=== PATIENT | female | born 1945 | race Caucasian/White ===

== ENCOUNTER 2017-02-02 13:49 | Inpatient (IN) | payer MEDICARE, BC ==
--- NOTE | 2017-02-02 14:05 | ED.PDOC ---
History of Present Illness - General Chief Complaint: Abdominal Pain Stated Complaint: abdominal pain, N/V/hematochezia Time Seen by Provider: 02/02/17 13:59 Information Source: patient Exam Limitations: no limitations - History of Present Illness Initial Comments: Patient presents with abdominal pain, N/V, bloody diarrhea for two days. It started yesterday morning with N/V. No bilious emesis. Diarrhea started yesterday afternoon and it was mixed with blood. Today she has had a bowel movement that she says was pure blood. Abdominal pain is generalized, worse with eating and bowel movements, better with rest. No previous episodes. Sharp in nature. Has hx of cholecystectomy and total hysterectomy/ oophorectomy. Is IDDM. Says she has a history of hemorrhoids but she does not believe that they have been bleeding recently. Denies cardiac history. Past Medical History (General) - Patient Medical History Hx Seizures: No Hx Stroke: No Hx Dementia: No Hx Asthma: No Hx of COPD: No Hx Cardiac Disorders: No Hx Congestive Heart Failure: No Hx Pacemaker: No Hx Hypertension: Yes Hx Thyroid Disease: No Hx Diabetes: Yes Hx Gastroesophageal Reflux: Yes Hx Renal Disease: No Hx Cancer: No Hx of HIV: No Hx Hepatitis C: No Hx MRSA: No - Social History Hx Tobacco Use: No Hx Alcohol Use: No Hx Substance Use: No Hx Substance Use Treatment: No Hx Depression: No Family Medical History - Family History Mother Family History: No Known Hx Family;Other: Sister and Daughter both have Renal and Ureteral lithiasis. Physical Exam - Physical Exam General Appearance: Alert Eyes, Ears, Nose, Throat Exam: normal ENT inspection Neck: non-tender, full range of motion, supple Respiratory: chest non-tender, lungs clear, normal breath sounds Cardiovascular/Chest: normal peripheral pulses, regular rate, rhythm Peripheral Pulses: 2+ Gastrointestinal/Abdominal: normal bowel sounds, non tender, soft Back Exam: no CVA tenderness Extremity: non-tender, normal inspection, no pedal edema Neurologic: no motor/sensory deficits Skin Exam: normal color Lymphatic: no adenopathy Special Observations: Other - pain does not increase with coughing Progress - Progress Progress: 02/02/17 15:59 CT abdomen/pelvis showed thickening of the descending colon that could be infectious vs. inflammatory. wbc 11.7 Patient started on Levaquin 500 mg IV x one and metronidazole 500 mg IV x one. Admitted to inpatient. Laboratory Tests 02/02/17 02/02/17 14:04 14:53 WBC 11.7 H RBC 4.43 Hgb 12.2 Hct 37.7 MCV 85.1 MCH 27.6 MCHC 32.4 L RDW 14.0 Plt Count 302 MPV 8.4 Absolute Neuts (auto) 7.80 H Absolute Lymphs (auto) 3.00 Absolute Monos (auto) 0.80 Absolute Eos (auto) 0.00 Absolute Basos (auto) 0.10 Neutrophils % 66.0 Lymphocytes % 25.9 Monocytes % 7.1 Eosinophils % 0.2 L Basophils % 0.8 PT 13.2 H INR 1.170 PTT (SP) 27.7 Sodium 138 Potassium 3.4 L Chloride 101 Carbon Dioxide 29 Anion Gap 11.4 L BUN 23 H Creatinine 0.94 BUN/Creatinine Ratio 24.5 H Random Glucose 123 H Serum Osmolality 280.7 Lactic Acid 0.9 Calcium 9.2 Total Bilirubin 0.9 AST 24 ALT 21 Alkaline Phosphatase 60 Creatine Kinase 148 H CK-MB (CK-2) 3.2 CK-MB (CK-2) % Ramp Lead Troponin I < 0.02 B-Natriuretic Peptide 56.7 Serum Total Protein 7.5 Albumin 4.4 Globulin 3.1 Albumin/Globulin Ratio 1.4 Urine Color Yellow Urine Appearance Clear Urine pH 5.5 Ur Specific [place] 1.025 Urine Protein Negative Urine Glucose (UA) Negative Urine Ketones Negative Urine Blood Small H Urine Nitrite Negative Urine Bilirubin Negative Urine Urobilinogen 0.2 Ur Leukocyte Esterase Small H Urine RBC 5-10 H Urine WBC 5-10 H Ur Epithelial Cells 3-5 Urine Bacteria 2+ H Departure - Departure Clinical Impression: Acute colitis Disposition: Admit Patient Condition: Good Departure Forms: ED Discharge - Pt. Copy, Patient Portal Self Enrollment Instructions: DI for Abdominal Pain-Adult Diet: other - as per hospitalist Activity: increase activity as tolerated Home Medications: Ambulatory Orders Albuterol Inhaler [Ventolin Hfa Inhaler] 0 gm INH DAILY 09/12/14 Allopurinol [Zyloprim] 100 mg PO DAILY 09/12/14 Cyanocobalamin Inj [Vitamin B-12 Inj] 1,000 mcg IM MONTHLY 09/12/14 Dexlansoprazole [Dexilant] 60 mg PO DAILY 09/12/14 Lisinopril & Hydrochlorothiazi [Lisinopril/Hctz 20-25 mg] 1 tab PO DAILY Simvastatin 20 mg PO DAILY 09/12/14 Sitagliptin-Metformin HCl [Janumet 50-500 mg] 1 tab PO BID 09/12/14 Carbidopa-Levodopa [Carbidopa/Levodopa Odt 25-250 mg] 1 tab PO BID 02/02/17 Insulin Glargine [Lantus Solostar] 20 unit BEDTIME 02/02/17 Insulin Glargine [Lantus Solostar] 20 unit SC AC 02/02/17 Pramipexole Dihydrochloride [Pramipexole Dihydrochlori] 0.5 mg PO BID 02/02/17
--- NOTE | 2017-02-02 15:45 | CT ---
PROCEDURE: Abdomen/Pelvis w/wo Contrast Clinical History: abdominal pain, hematochezia Indication: Same as above. Comparison: 09/12/2014. Technique: CT of the abdomen and pelvis was done without and with intravenous contrast, followed by orthogonal reconstructions. Oral contrast was not given for the study. The patient was injected with contrast intravenously, without any documented immediate adverse reactions. This exam was performed according to our departmental dose-optimization program, which includes automated exposure control, adjustment of the mA and/or KV according to the patient's size and/or use of iterative reconstruction technique. Findings: There is diffuse thickening of the wall of the descending colon from the level of the splenic flexure to the level of the proximal sigmoid colon, with minimal stranding of the fat planes in the vicinity of the descending colon and suspicious for infectious/inflammatory etiology. Trace amount of free fluid is seen in the pelvis There is mild discoid atelectasis/scarring in the right middle lobe of the lung. There is a moderate size hiatal hernia The liver, pancreas, spleen and the bilateral adrenal glands appear unremarkable. The gallbladder is surgically absent. There is no CT evidence of urinary tract calculi or urinary tract obstruction. The bilateral kidneys enhance with contrast in a normal fashion, without any evidence of hydronephrosis on either side. The bilateral ureters and the bilateral periureteral soft tissues and fat planes are unremarkable. There is no evidence of hydroureter on either side. The urinary bladder is unremarkable . The small bowel appears unremarkable, without any evidence of small bowel obstruction or bowel wall thickening. Appendix is not visualized. The ileocecal junction appears unremarkable. The splenic and portal veins are of normal caliber, without any filling defects. There is no pathological lymphadenopathy in the retroperitoneum or in the pelvic region. There is no evidence of free air in the abdomen or the pelvic region. There is no clinically significant abdominal aortic aneurysm. There is no clinically significant inguinal or ventral hernia. There are no significant acute abnormalities of the bony structures of the abdomen and pelvic region. The paravertebral soft tissues are unremarkable. The remainder of the pelvic structures are unremarkable. Impression: There is diffuse thickening of the wall of the descending colon from the level of the splenic flexure to the level of the proximal sigmoid colon, with minimal stranding of the fat planes in the vicinity of the descending colon and suspicious for infectious/inflammatory etiology. Trace amount of free fluid is seen in the pelvis There is mild discoid atelectasis/scarring in the right middle lobe of the lung. There is a moderate size hiatal hernia Location of Interpretation: Teleradiology Electronically signed by: Domingo Tejada MD 02/02/2017 3:44 PM CDT
[2017-02-02] MEDS ORDERED: levoFLOXacin 500MG IV 500 MG in PREMIX BAG 1 BAG IVPB ONE (15:57)
[2017-02-02] MEDS ORDERED: metroNIDAZOLE IV PREMIX 500MG 500 MG in PREMIX BAG 1 BAG IVPB ONE (15:57)
--- NOTE | 2017-02-02 16:06 | HP ---
SUPERVISING PHYSICIAN: Thomas Lund M.D. CHIEF COMPLAINT: Abdominal pain with nausea and vomiting. HISTORY OF PRESENT ILLNESS: This is a 71 year-old female patient who works at [employer] [facility] [employer] [place]. Yesterday evening while she was at work she started having some severe abdominal pain. She went to the bathroom and she was nauseated with vomiting. Her abdomen was crampy. There was pain just below the umbilicus. After she started feeling somewhat better, she finally went home and at home she had some diarrhea. There was some blood tinged stool in it and she does have a history of external hemorrhoids. Over the next 12 to 15 hours she had several more diarrhea stools. Each one of then had some blood tinge in it, but there was no blood this morning with her stool. Her is an EMT and although they are right now, she had called him last night and he has been monitoring her overnight. This morning, he suggested that she come to the Emergency Room because her symptoms were not getting better. In the Emergency Room, she was found to have a urinary tract infection. Potassium was slightly low at 3.4, BUN was up some at 23. Troponin was negative, creatinine kinase was 148. She had leukocytosis with a white count of 11.7. Chest x-ray per radiology interpretation showed that she had some atelectasis to the right lower lobe and a CT of the abdomen showed diffuse thickening of the wall of the descending colon from the level of the splenic flexure to the level of the proximal sigmoid colon with minimal stranding on flat planes in the vicinity of the descending colon and suspicious for an infectious/inflammatory etiology. Also showed trace amount of free fluid seen in the pelvis and there is mild discoid atelectasis/scarring in the right middle lobe of the lung. There is a moderate sized hiatal hernia. I was called for admission to the hospital. PAST MEDICAL HISTORY: 1. Type 2 diabetes. 2. Hyperlipidemia. 3. Hypertension. 4. Parkinson's disease. 5. Gout. 6. Gastroesophageal reflux disease. 7. Seasonal asthma. 8. Depression. PAST SURGICAL HISTORY: 1. Hysterectomy. 2. Tubal ligation. 3. Arthroscopy. 4. Right and left knee surgery. 5. Back surgery for spinal stenosis. 6. Cholecystectomy. CURRENT MEDICATIONS: ALLERGIES: PENTAZOCINE, CODEINE, HYDROCODONE, MORPHINE AND VICODIN. 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 She is from her at this time. She denies any tobacco, ETOH or illicit drug use. REVIEW OF SYSTEMS: GENERAL: Positive for fatigue. Denies chills, fever or weight changes. HEENT: Denies sinus symptoms, ear pain, eye pain or sore throat. RESPIRATORY: Denies shortness of breath, wheezing or coughing. CARDIAC : Denies chest pain, palpitations or tachycardia. GASTROINTESTINAL: As per the History of Present Illness. GENITOURINARY: Denies hematuria, dysuria or polyuria. SKIN: Denies lesions or rashes. NEUROLOGIC: Denies headaches, seizures or weakness. PHYSICAL EXAMINATION: VITAL SIGNS: Temperature 99.2, heart rate 73, blood pressure 137/77, respiratory rate 18, O2 sat is 94% on room air. GENERAL: This is a 71 year-old obese female who is lying in her hospital bed. She is in no acute distress. HEENT: Normocephalic and atraumatic. Pupils are equal and reactive. Oropharynx is clear. Oral mucous membranes are moist. NECK: Supple without mass. Trachea is midline. There is no jugular venous distention. CHEST: Clear to auscultation bilaterally. There is equal rise and fall of the chest with inspiration and expiration. CARDIOVASCULAR: Regular rate and rhythm. ABDOMEN: Soft, nondistended. Moderately tender around the umbilicus and extends to the suprapubic area. It is mildly tender in the left lower quadrant. There is no rebound tenderness. EXTREMITIES: No cyanosis, clubbing or edema. NEUROLOGIC: She is awake, alert and oriented times three. LABORATORY AND RADIOLOGY: Labs and films are as per the History of Present Illness. ASSESSMENT: 1. Acute colitis. 2. Urinary tract infection. 3. Question upper respiratory infection. 4. Leukocytosis most likely due to number 1 and number 2. 5. Diabetes mellitus type 2. 6. Parkinson's disease. 7. Gastroesophageal reflux disease. 8. Hyperlipidemia. 9. Hypertension. 10. Gout. 11. Depression. PLAN: Will admit the patient to the hospital. She received Flagyl and Levaquin in the E. R. I will continue those antibiotics. We will monitor cultures as they become available. Check her lab in the morning. I have restarted her home medications. I will give her p.r.n. breathing treatments. A PPI has been ordered for ulcer prophylaxis. I will just use SCDs for DVT prophylaxis for now. Will also order a stool occult blood. We will monitor the patient closely and followup as needed. Dr. Lund is the collaborating physician available for consultation. #[id number] [facility]
[2017-02-02] MEDS ORDERED: metroNIDAZOLE IV PREMIX 500MG 100 ML IVPB ONE ×2 (16:34→19:50)
[2017-02-02] MEDS ORDERED: levoFLOXacin 500MG IV 100 ML IVPB ONE (17:25)
--- NOTE | 2017-02-02 17:35 | RAD ---
EXAM DESCRIPTION: Chest,1 View CLINICAL HISTORY: 71 years Female abdominal pain, diabetic COMPARISON: 06/06/2010. FINDINGS: Mildly prominent cardiac silhouette. Mild linear atelectasis at the right lung base. No consolidating infiltrates or pleural effusions. No pneumothorax. No free air is visualized in the abdomen. IMPRESSION: Mild cardiomegaly and mild atelectatic changes in the right lower lung. Electronically signed by: You Reyes MD 02/02/2017 5:34 PM CDT
[2017-02-02] MEDS ORDERED: SODIUM CHLORIDE 0.9% (FLUSH) 10 ML SYG IV PRN (18:32)
[2017-02-02] MEDS ORDERED: ALBUTEROL SULFATE 2.5 MG/3 ML VIAL NEB PRN (18:34)
[2017-02-02] MEDS ORDERED: ACETAMINOPHEN 325 MG TAB PO PRN (18:34)
[2017-02-02] MEDS ORDERED: ACETAMINOPHEN SUPPOSITORY 650 MG PR PRN (18:34)
[2017-02-02] MEDS ORDERED: GLUCAGON INJ 1 MG VIAL SUBCU PRN (18:36)
[2017-02-02] MEDS ORDERED: ONDANSETRON INJ 4 MG/2 ML VIAL IV PRN (18:36)
[2017-02-02] MEDS ORDERED: DEXTROSE 50% 25 GM/50 ML SYG IV PRN (18:36)
[2017-02-02] MEDS ORDERED: PANTOPRAZOLE SODIUM IV 40 MG VIAL IV SCH (19:00)
[2017-02-02] MEDS ORDERED: IV SET AND CAP CHANGE INJ INJ SCH (19:00)
--- NOTE | 2017-02-02 19:08 | PCM.CORE ---
Physician DVT/VTE - Prophylaxis Currently: Patient already on anticoagulation therapy - Nurse DVT Assessment & Total Each Risk Factor Represents 2 Points: Age 60-74 Each Risk Factor Represents 1 Point: Medical PT at Bed Rest Each Risk Factor is 1 Point: Hx of Inflammatory Bowel Disease DVT Assessment Score: 4 - 5 or more Very High Risk Treatments: Early Ambulation *, Sequential Compression Device
[2017-02-02] MEDS ORDERED: metFORMIN HCL 500 MG TAB ONE (19:49)
[2017-02-02] MEDS ORDERED: PRAMIPEXOLE 0.25 MG TAB PO ONE (19:49)
[2017-02-02] MEDS ORDERED: SITagliptin 50 MG TAB PO ONE (19:49)
[2017-02-02] MEDS: [UNRECOGNIZED DRUG - OTHER] PO SCH (21:00)
[2017-02-02] MEDS ORDERED: SITAGLIPTIN PO SCH (21:00)
[2017-02-02] MEDS ORDERED: METFORMIN HCL PO SCH (21:00)
[2017-02-02] MEDS: CARBIDOPA LEVODOPA PO SCH (21:00)
[2017-02-02] MEDS ORDERED: NON-FORMULARY MEDICATION 1 EA MIS (Pramipexole Dihydrochloride [Pramipexole Dihydrochlori] PO SCH (21:00)
[2017-02-02] MEDS: metFORMIN HCL 500 MG TAB PO SCH (21:15)
[2017-02-02] MEDS: SITagliptin 50 MG TAB PO SCH (21:15)
[2017-02-02] MEDS: INSULIN LISPRO 100 UNITS/ML PEN SUBCU SCH (21:23)
[2017-02-03] MEDS: metroNIDAZOLE IV PREMIX 500MG 500 MG in PREMIX BAG 1 BAG IVPB SCH ×3 (00:25→16:20)
[2017-02-03] MEDS: INSULIN LISPRO 100 UNITS/ML PEN SUBCU SCH ×4 (07:33→21:30)
[2017-02-03] MEDS: SITagliptin 50 MG TAB PO SCH ×2 (08:01→17:27)
[2017-02-03] MEDS: metFORMIN HCL 500 MG TAB PO SCH ×2 (08:02→17:31)
[2017-02-03] MEDS ORDERED: metroNIDAZOLE IV PREMIX 500MG 100 ML IVPB ONE ×3 (08:05→23:26)
[2017-02-03] MEDS: LISINOPRIL 10 MG TAB PO SCH (08:49)
[2017-02-03] MEDS: PRAMIPEXOLE 0.25 MG TAB PO SCH ×2 (08:49→20:35)
[2017-02-03] MEDS: hydroCHLOROthiazide 25 MG TAB PO SCH (08:49)
[2017-02-03] MEDS: ALLOPURINOL 100 MG TAB PO SCH (08:49)
[2017-02-03] MEDS: SODIUM CHLORIDE 0.9% (FLUSH) 10 ML SYG IV SCH ×2 (08:50→20:34)
[2017-02-03] MEDS ORDERED: POTASSIUM CHLORIDE 20 MEQ TAB PO ONE (08:54)
[2017-02-03] MEDS ORDERED: NON-FORMULARY MEDICATION 1 EA MIS (Lisinopril & Hydrochlorothiazi [Lisinopril/Hctz 20-25 M PO SCH (09:00)
[2017-02-03] MEDS ORDERED: SODIUM CHLORIDE 0.9% 1000ML 500 ML IVS ONE (09:03)
[2017-02-03] MEDS: CARBIDOPA LEVODOPA PO SCH ×2 (10:45→20:35)
[2017-02-03] MEDS: [UNRECOGNIZED DRUG - OTHER] PO SCH ×2 (10:45→20:35)
--- NOTE | 2017-02-03 11:40 | PN ---
DATE: 02/03/17 SUPERVISING PHYSICIAN: Thomas Lund M.D. SUBJECTIVE: The patient is sitting up in her bed. She is watching television. She denies any nausea or vomiting, chest pain or shortness of breath. She did not need a breathing treatment overnight. She does say that her abdomen is still quite tender around the umbilicus but is much improved since yesterday. She still does not have much of an appetite but she has been tolerating her clear liquid diet without any problems. When asked about her last colonoscopy, she had one about [address] Trevizo and there were no problems found that she remembers. OBJECTIVE: VITAL SIGNS: She is afebrile, heart rate 105, blood pressure 147/84 , respiratory rate 18, O2 sat 93% on room air. Intake is 1,040, output is 700 for a positive of about +340 mL. RESPIRATORY: Clear to auscultation bilaterally. CARDIAC: Regular rate and rhythm. ABDOMEN: Soft, nondistended. There is some tenderness around the umbilicus that is much improved since yesterday. Bowel sounds are positive. NEUROLOGIC: She is awake, alert and oriented times three. EXTREMITIES: No cyanosis, clubbing or edema. LABORATORY: WBCs are basically unchanged from yesterday at 11.6, hemoglobin is stable at 11.4 and 35.2. Potassium is slightly low at 3.2. Bilirubin has gone up slightly to 1.2. She has had no stools overnight. All other labs and films have been reviewed via the EMR. ASSESSMENT: 1. Acute colitis. 2. Urinary tract infection. 3. Question upper respiratory infection. 4. Hypokalemia. 5. Leukocytosis most likely due to number 1 and number 2. 6. Diabetes mellitus type 2. 7. Parkinson's disease. 8. Gastroesophageal reflux disease. 9. Hyperlipidemia. 10. Hypertension. 11. Gout. 12. Depression. PLAN: We will continue present support care, including her antibiotics of Levaquin and Flagyl. I have given her an additional dose of potassium this morning. Will repeat her labs tomorrow. I have also advanced her diet to a full liquid and if she tolerates that well I can add some toast this evening. I explained to her that she will need to be on a very bland diet for a few days after discharge. She had a CT with contrast in the Emergency Room and she received her Metformin, so I have given her a 500 mL bolus of normal saline. On discharge, she will need to followup with her primary care physician, Dr. Ray. It is recommended that she see Dr. Trevizo as an outpatient to be scoped. She had her colonoscopy about 3 years ago, so she will need another one of those. Hopefully she will improve and she can be discharged tomorrow or the next day. Clinically she has improved since admission. Will continue to monitor closely and treat as appropriate. Dr. Lund is the collaborating physician available for consultation. #[id number] [facility]
[2017-02-03] MEDS ORDERED: SODIUM CHLORIDE 0.9% 1000ML 1,000 ML ONE (12:22)
[2017-02-03] MEDS ORDERED: levoFLOXacin 500MG IV 500 MG in PREMIX BAG 1 BAG IVPB SCH (17:00)
[2017-02-03] MEDS ORDERED: levoFLOXacin 500MG IV 100 ML IVPB ONE (17:23)
[2017-02-03] MEDS ORDERED: PANTOPRAZOLE SODIUM IV 40 MG VIAL ONE (19:25)
[2017-02-03] MEDS ORDERED: PANTOPRAZOLE SODIUM IV 40 MG VIAL IV SCH (21:00)
[2017-02-04] MEDS: metroNIDAZOLE IV PREMIX 500MG 500 MG in PREMIX BAG 1 BAG IVPB SCH ×2 (00:02→08:21)
[2017-02-04] MEDS: metFORMIN HCL 500 MG TAB PO SCH (07:23)
[2017-02-04] MEDS ORDERED: metroNIDAZOLE IV PREMIX 500MG 100 ML IVPB ONE (07:25)
[2017-02-04] MEDS: INSULIN LISPRO 100 UNITS/ML PEN SUBCU SCH ×2 (08:16→12:21)
[2017-02-04] MEDS: SITagliptin 50 MG TAB PO SCH (08:21)
[2017-02-04] MEDS ORDERED: CARBIDOPA/LEVODOPA 25/100 1 TAB PO ONE (08:58)
[2017-02-04] MEDS: ALLOPURINOL 100 MG TAB PO SCH (09:12)
[2017-02-04] MEDS: PRAMIPEXOLE 0.25 MG TAB PO SCH (09:12)
[2017-02-04] MEDS: hydroCHLOROthiazide 25 MG TAB PO SCH (09:12)
[2017-02-04] MEDS: LISINOPRIL 10 MG TAB PO SCH (09:12)
[2017-02-04] MEDS: CARBIDOPA LEVODOPA PO SCH (09:13)
[2017-02-04] MEDS: [UNRECOGNIZED DRUG - OTHER] PO SCH (09:13)
[2017-02-04] MEDS: SODIUM CHLORIDE 0.9% (FLUSH) 10 ML SYG IV SCH (09:13)
[2017-02-04 10:08] VITALS: BP 107/67; TEMP 97.4
--- NOTE | 2017-02-04 14:40 | DS ---
DISCHARGE DIAGNOSIS: 1. Acute abdominal pain, showing improvement. 2. Acute colitis involving the descending colon, documented on radiographic examinations and requiring close GI followup. 3. Hypokalemia, improved with supplementation. 4. Leukocytosis, improved. 5. Chronic diabetes mellitus, type 2. 6. Chronic Parkinsonism. 7. History of gastroesophageal reflux disease. 8. History of hyperlipidemia. 9. History of hypertension. 10. History of gout. 11. History of chronic depression. 12. History of GI hemorrhage with stool guaiac-positive stools. HISTORY OF PRESENT ILLNESS: This 71-year-old, white female was admitted to the hospital via the Emergency Room after onset of severe abdominal cramping pain, primarily in the lower quadrants, more on the left than the right. She was nauseated with associated vomiting and had some loose stools with some blood- tinged elements present. She has had a history of at least two colonoscopies in the past and apparently nothing significant has been found with the most recent one of approximately four years ago by Dr. Trevizo. Evidence of possible urinary tract infection was noted in the Emergency Room, yet cultures were negative. CT scan was abnormal with diffuse thickening of the wall of the descending colon from the level of the splenic flexure to the proximal sigmoid colon with some inflammation findings surrounding it. The patient was admitted to the hospital for IV hydration as well as parenteral antibiotic usage as well as for GI rest and slow advancement of the diet over several days in an attempt to improve significant clinical symptoms the patient presents with. LABORATORY: Initial white count was 11,700 with 66 neutrophils, decreasing to 7 ,500 at discharge. Hemoglobin 11.2. INR 1.17. Chemistries showed potassium 3.6, BUN 14, creatinine 0.89, fasting glucose 125. Liver enzymes normal. Beta natriuretic peptide 56, troponin 0, albumin 3.6. Urinalysis did show some leukocyte esterase with 5 to 10 RBC and WBC noted and 2+ bacteruria, yet with a negative urine culture. Blood cultures are negative. X-rays showed evidence of significant bowel wall thickening and inflammatory changes present diffusely along the descending colon. Copies of CT on CD given to the patient. HOSPITAL COURSE: The patient was feeling much improved on the morning of discharge and was ready for continued outpatient followup. She has not been on corticosteroids in the past for colitis. Further followup of the GI bleed is encouraged. PLAN: The patient is discharged home to have close followup with Dr. Ray this next Saturday in the [place] office. We are to try to get an appointment with Dr. Trevizo at the GI clinic with him being in the [place] office on 02/20/17. Advance the diet slowly from full liquids to soft diet over the next few days. Drink adequate fluids. See home medications. Continue with Levaquin and Flagyl p.o. for the next week under Dr. Ray's supervision. Observe for increasing pain, nausea, vomiting, bleeding, etc., and return if not improving. #[id number] [facility]
[2017-02-04 16:20] VITALS: O2SAT 96
== END 2017-02-04 15:09 | disposition home or self-care (01) | DRG 392 ==
LOC: ER 13:49 → MS 16:05
PROVIDERS: ADMIT Nurse Practitioner Acute Care; ATTEND Emergency Medicine
PROC: BW21YZZ Computerized Tomography (CT Scan) of Abdomen and Pelvis using Other Contrast (ICD-10-PCS; principal; 2017-02-02)
DX: K52.9 Noninfective gastroenteritis and colitis, unspecified (principal); N39.0 Urinary tract infection, site not specified; K92.1 Melena; E87.6 Hypokalemia; K44.9 Diaphragmatic hernia without obstruction or gangrene; E11.9 Type 2 diabetes mellitus without complications; E78.5 Hyperlipidemia, unspecified; I10 Essential (primary) hypertension; G20 Parkinson's disease; M10.9 Gout, unspecified; K21.9 Gastro-esophageal reflux disease without esophagitis; F32.9 Major depressive disorder, single episode, unspecified; E66.9 Obesity, unspecified; J45.909 Unspecified asthma, uncomplicated; Z88.8 Allergy status to other drugs, medicaments and biological substances; Z88.5 Allergy status to narcotic agent; Z79.4 Long term (current) use of insulin; Z68.32 Body mass index [BMI] 32.0-32.9, adult

== ENCOUNTER → 2017-02-11 | Outpatient (CLI) | payer MEDICARE, BC | END | disposition home or self-care (01) | LOC: LAB.O 17:28 | PROVIDERS: ATTEND Obstetrics & Gynecology | DX: K62.5 Hemorrhage of anus and rectum (principal) ==

== ENCOUNTER → 2017-06-05 | Outpatient (CLI) | payer MEDICARE, BC ==
--- NOTE | 2017-06-06 08:01 | US ---
EXAM DESCRIPTION: Carotid Doppler sonogram CLINICAL HISTORY: DIZZINESS, GIDDINESS COMPARISON: [None Available.] TECHNIQUE: [Color Doppler evaluation of the extracranial carotids] FINDINGS: Right carotid: Peak systolic velocity common carotid artery = 53 cm/s Peak systolic velocity internal carotid artery = 60 cm/s Peak systolic velocity external carotid artery = 62 cm/s ICA CCA ratio 1.1 Left carotid: Peak systolic velocity common carotid artery = 84 cm/s Peak systolic velocity internal carotid artery = 61 cm/s Peak systolic velocity external carotid artery = 86 cm/s ICA CCA ratio 0.7 Antegrade flow is seen in both vertebral arteries Normal flow velocities and waveforms are demonstrated bilaterally. IMPRESSION: [No atherosclerotic involvement of the extracranial carotid arteries. No evidence of hemodynamically significant stenosis] Electronically signed by: Alexandru Holman MD 06/06/2017 8:00 AM CDT
== END | disposition home or self-care (01) ==
LOC: US 08:38
PROVIDERS: ATTEND Internal Medicine Interventional Cardiology
DX: R42 Dizziness and giddiness (principal); R26.0 Ataxic gait; R55 Syncope and collapse

== ENCOUNTER 2017-11-05 10:52 | Emergency (ER) | payer MEDICARE, BC ==
[2017-11-05 11:16] VITALS: TEMP 100.9
--- NOTE | 2017-11-05 11:28 | ED.PDOC ---
History of Present Illness - General Chief Complaint: Respiratory Problem Stated Complaint: cough and fever Time Seen by Provider: 11/05/17 11:21 Source: patient, family Exam Limitations: no limitations - History of Present Illness Timing/Duration: other - two days for cough, 1 day for L chest pain Severity: moderate Improving Factors: nothing Worsening Factors: nothing Associated Symptoms: chest pain - pain is below lateral L breast, cough, fever/ chills, headaches, malaise, weakness Allergies/Adverse Reactions: Allergies Aspirin [From Talwin Compound] Allergy (Verified 11/05/17 11:17) Codeine Allergy (Verified 11/05/17 11:17) Hydrocodone Allergy (Verified 11/05/17 11:17) Ibuprofen Allergy (Verified 11/05/17 11:17) Morphine Allergy (Verified 11/05/17 11:17) Naproxen Allergy (Verified 11/05/17 11:17) Oxycodone [From Percocet] Allergy (Verified 11/05/17 11:17) Pentazocine [From Talwin Compound] Allergy (Verified 11/05/17 11:17) Home Medications: Ambulatory Orders Albuterol Inhaler [Ventolin Hfa Inhaler] 1 - 2 puff INH PRN PRN 09/12/14 Allopurinol [Zyloprim] 100 mg PO DAILY 09/12/14 Dexlansoprazole [Dexilant] 60 mg PO DAILY 09/12/14 Lisinopril & Hydrochlorothiazi [Lisinopril/Hctz 20-25 mg] 1 tab PO DAILY Simvastatin 20 mg PO DAILY 09/12/14 Sitagliptin-Metformin HCl [Janumet 50-500 mg] 1 tab PO BID 09/12/14 Carbidopa-Levodopa [Carbidopa/Levodopa 25-250 mg] 1 tab PO BID 02/02/17 Insulin Glargine [Lantus Solostar] 6 unit SUBCU BEDTIME 02/02/17 Insulin Glargine [Lantus Solostar] 20 unit SC DAILY 02/02/17 Pramipexole Dihydrochloride [Pramipexole Dihydrochlori] 0.5 mg PO BID 02/02/17 Metronidazole [Flagyl] 375 mg PO TID #25 cap 02/04/17 levoFLOXacin [Levaquin] 500 mg PO DAILY #10 tab 02/04/17 Oseltamivir Capsule [Tamiflu] 75 mg PO BID #10 cap 11/05/17 Review of Systems - Review of Systems Constitutional: States: fever, malaise, weakness EENTM: Denies: blurred vision, ear pain, nose congestion, throat pain, mouth pain Respiratory: States: cough. Denies: orthopnea, short of breath Cardiology: States: chest pain. Denies: edema Gastrointestinal/Abdominal: States: nausea, vomiting. Denies: abdominal pain Genitourinary: States: no symptoms reported Musculoskeletal: Denies: back pain, muscle pain Skin: Denies: rash Neurological: States: headache, weakness Endocrine: Denies: increased thirst, increased urine Hematologic/Lymphatic: Denies: swollen glands Past Medical History (General) - Patient Medical History Hx Seizures: No Hx Stroke: No Hx Dementia: No Hx Asthma: No Hx of COPD: No Hx Cardiac Disorders: No Hx Congestive Heart Failure: No Hx Pacemaker: No Hx Hypertension: Yes Hx Thyroid Disease: No Hx Diabetes: Yes Hx Gastroesophageal Reflux: Yes Hx Renal Disease: No Hx Cancer: No Hx of HIV: No Hx Hepatitis C: No Hx MRSA: No Surgical History: cholecystectomy, Hysterectomy, other - Vaccination History Hx Tetanus, Diphtheria Vaccination: No Hx Influenza Vaccination: No Hx Pneumococcal Vaccination: No - Social History Hx Tobacco Use: No Hx Chewing Tobacco Use: No Hx Alcohol Use: No Hx Substance Use: No Hx Substance Use Treatment: No Hx Depression: No Hx Physical Abuse: No Hx Emotional Abuse: No Hx Suspected Abuse: No - Female History Patient is a Female of Child Bearing Age (10 -59 yrs old): No Patient : No Family Medical History - Family History Mother Family History: No Known Hx Family;Other: Sister and Daughter both have Renal and Ureteral lithiasis. 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 Copy, Patient Portal Self Enrollment Referrals: Oscar Ray MD [Primary Care Provider] - 1-2 Weeks Prescriptions: Oseltamivir Capsule [Tamiflu] 75 mg PO BID #10 cap Home Medications: Ambulatory Orders Albuterol Inhaler [Ventolin Hfa Inhaler] 1 - 2 puff INH PRN PRN 09/12/14 Allopurinol [Zyloprim] 100 mg PO DAILY 09/12/14 Dexlansoprazole [Dexilant] 60 mg PO DAILY 09/12/14 Lisinopril & Hydrochlorothiazi [Lisinopril/Hctz 20-25 mg] 1 tab PO DAILY Simvastatin 20 mg PO DAILY 09/12/14 Sitagliptin-Metformin HCl [Janumet 50-500 mg] 1 tab PO BID 09/12/14 Carbidopa-Levodopa [Carbidopa/Levodopa 25-250 mg] 1 tab PO BID 02/02/17 Insulin Glargine [Lantus Solostar] 6 unit SUBCU BEDTIME 02/02/17 Insulin Glargine [Lantus Solostar] 20 unit SC DAILY 02/02/17 Pramipexole Dihydrochloride [Pramipexole Dihydrochlori] 0.5 mg PO BID 02/02/17 Metronidazole [Flagyl] 375 mg PO TID #25 cap 02/04/17 levoFLOXacin [Levaquin] 500 mg PO DAILY #10 tab 02/04/17 Oseltamivir Capsule [Tamiflu] 75 mg PO BID #10 cap 11/05/17
--- NOTE | 2017-11-05 12:16 | RAD ---
EXAM DESCRIPTION: Chest,1 View CLINICAL HISTORY: Cough. Left chest pain FINDINGS/ IMPRESSION: Comparison 02/02/2017. Stable cardiomegaly. Mildly prominent central vasculature without pulmonary edema, infiltrate or effusion. No pneumothorax No diagnostic chest wall abnormality Electronically signed by: Alexandru Holman MD 11/05/2017 12:15 PM GEOGRAPHY TEACHER
[2017-11-05 13:07] VITALS: BP 144/75; O2SAT 93
== END 2017-11-05 13:07 | disposition home or self-care (01) ==
LOC: ER 10:52
DX: J11.1 Influenza due to unidentified influenza virus with other respiratory manifestations (principal); I10 Essential (primary) hypertension; E11.9 Type 2 diabetes mellitus without complications; Z79.4 Long term (current) use of insulin; Z79.899 Other long term (current) drug therapy

== ENCOUNTER → 2018-04-16 | Outpatient (CLI) | payer MEDICARE, BC | LOC: LAB.O 08:59 | PROVIDERS: ATTEND Obstetrics & Gynecology | DX: Z00.00 Encounter for general adult medical examination without abnormal findings (principal); E11.9 Type 2 diabetes mellitus without complications; E78.5 Hyperlipidemia, unspecified ==

== ENCOUNTER → 2019-03-31 | Outpatient (CLI) | payer MEDICARE, BC ==
--- NOTE | 2019-03-31 17:16 | RAD ---
EXAM DESCRIPTION: Chest,2 Views CLINICAL HISTORY: PNEUNOMIA COMPARISON: Previous study November 05, 2017 TECHNIQUE: PA/lateral FINDINGS: Heart is large with normal pulmonary vascularity. Hiatal hernia behind the heart. No pleural effusion or pneumothorax. Lungs are clear with no consolidating infiltrate. Lateral view shows intact sternum and spurring in the lower T-spine. IMPRESSION: No acute process is identified in the chest. Electronically signed by: Brian Paez MD 03/31/2019 5:14 PM CDT
== END ==
LOC: RAD 15:46
PROVIDERS: ATTEND Obstetrics & Gynecology
DX: J18.9 Pneumonia, unspecified organism (principal)

== ENCOUNTER → 2019-05-07 | Outpatient (CLI) | payer MEDICARE, BC | LOC: LAB.O 17:05 | PROVIDERS: ATTEND Obstetrics & Gynecology | DX: E05.90 Thyrotoxicosis, unspecified without thyrotoxic crisis or storm (principal); E11.9 Type 2 diabetes mellitus without complications; R89.9 Unspecified abnormal finding in specimens from other organs, systems and tissues; Z86.39 Personal history of other endocrine, nutritional and metabolic disease ==

== ENCOUNTER → 2019-06-02 | Outpatient (CLI) | payer MEDICARE, BC ==
--- NOTE | 2019-06-03 11:06 | RAD ---
EXAM DESCRIPTION: Calcaneous, left CLINICAL HISTORY: Several posterior calcaneal spurs COMPARISON: None Available. TECHNIQUE: Plantar view of the heel with lateral view. IMPRESSION: Normal bone density with no fracture or dislocation. Plantar calcaneal spur 10 mm. Posterior Achilles tendon calcaneal enthesophyte 18.6 mm. No abnormal radiodense objects in the soft tissues. Electronically signed by: Rolando Figueroa MD 06/03/2019 10:35 AM CDT
== END ==
LOC: RAD 15:17
PROVIDERS: ATTEND Podiatrist Foot & Ankle Surgery
DX: M77.32 Calcaneal spur, left foot (principal)